=== PATIENT | female | born 1935 | race Caucasian/White ===

== ENCOUNTER 2016-11-10 09:53 | Outpatient (CLI) | payer MEDICARE, MEDICAID ==
[~2016-11-10 09:53] MED LIST: CLOP75TA2 PO; GLIM2TAB2 PO; METO25TA6 PO; SITA1TAB2 PO; VALS1TAB4 PO
== END 2016-11-10 23:59 | disposition home or self-care (01) ==
LOC: CT 09:53
DX: K42.9 Umbilical hernia without obstruction or gangrene (principal); N28.1 Cyst of kidney, acquired; M48.54XA Collapsed vertebra, not elsewhere classified, thoracic region, initial encounter for fracture; M51.37 Other intervertebral disc degeneration, lumbosacral region; M48.02 Spinal stenosis, cervical region; I65.23 Occlusion and stenosis of bilateral carotid arteries; M50.323 Other cervical disc degeneration at C6-C7 level; M25.78 Osteophyte, vertebrae; R22.1 Localized swelling, mass and lump, neck; D71 Functional disorders of polymorphonuclear neutrophils
CPT/HCPCS: 70490-TC; 72128-TC

== ENCOUNTER 2017-05-13 15:06 | Emergency (ER) | payer MEDICARE, MEDICAID ==
[~2017-05-13] VITALS: Ht 160 cm; Wt 95.7 kg
[~2017-05-13 15:06] MED LIST changes: +CLOP75TA15 PO; -CLOP75TA2 PO
--- NOTE | 2017-05-13 15:25 | NUR ---
PRESENTS TO ER C/O RIGHT LOWER EXTREMITY PAIN AND SWELLING. PER PATIENT WORSENING X 7 DAYS NOW. PATIENT IS A/OX 4. BREATHING EVEN AND UNLABORED. NO SOB. VITALS STABLE. SAFETY AND COMFORT MEASURES IN PLACE. AWAITING MD ORDERS.
--- NOTE | 2017-05-13 15:30 | NUR ---
NEW IV STARTED ON RAC, 20 G. BLOOD DRAWN AND SENT TO LAB.
[2017-05-13 15:40] LABS: BASOPHILS # (AUTO) 0.1 /CMM (0.0-0.2); BASOPHILS % (AUTO) 0.9 % (0.0-2.0); EOSINOPHILS % (AUTO) 1.4 % (0.0-6.0); HEMATOCRIT 31 % (33-45); HEMOGLOBIN 10.2 g/dL (11.5-14.8); LYMPHOCYTES # (AUTO) 2.3 /CMM (0.8-4.8); LYMPHOCYTES % (AUTO) 27.5 % (20.0-44.0); MEAN CORPUSCULAR HGB CONC 33 g/dl (31.0-36.0); MEAN CORPUSCULAR VOLUME 78 fL (82-100); MONOCYTES # (AUTO) 0.6 /CMM (0.1-1.30); MONOCYTES % (AUTO) 7.5 % (2.0-12.0); NEUTROPHILS # (AUTO) 5.3 /CMM (1.8-8.9); NEUTROPHILS % (AUTO) 62.7 % (43.0-81.0); PLATELET COUNT (AUTO) 247 /CMM (150-450); RDW COEFFICIENT OF VARIATION 16.2 (11.5-15.0); RED BLOOD CELL COUNT(AUTO) 3.94 MIL/uL (4.0-5.2); WHITE BLOOD COUNT (AUTO) 8.4 K/uL (4.3-11.0)
[2017-05-13 15:54] LABS: CARBON DIOXIDE 27 mmol/L (21-32); CHLORIDE 108 mmol/L (98-107); CREATININE 0.9 mg/dL (0.6-1.3); GLUCOSE 115 mg/dL (74-106); SODIUM SERUM 141 mmol/L (136-145); UREA NITROGEN, BLOOD 22 mg/dL (7-18)
[2017-05-13 15:58] LABS: INR 0.96 (0.87-1.13)
[2017-05-13 16:02] LABS: TROPONIN I < 0.017 ng/mL (0.00-0.056)
--- NOTE | 2017-05-13 16:05 | NUR ---
US TECH AT BEDSIDE.
[2017-05-13 16:06] LABS: B-TYPE NATRIURETIC PEPTIDE 317 PG/ML (0-125)
[2017-05-13 17:41] VITALS: BP 154/86
--- NOTE | 2017-05-13 17:46 | NUR ---
PATIENT WANTING TO LEAVE DESPITE NOT HAVING ARTERIAL DUPLEX DONE. MD EXPLAINED THEY WOULD HAVE TO LEAVE AMA. PATIENT AND FAMILY AGREE TO LEAVE AMA AND F/U WITH PRIMARY MD FOR TEST. MD AND PATIENT SIGNED AMA FORM. IV removed. Catheter intact and site benign. Pressure and 4x4 applied to site. No bleeding noted. Patient discharged to home in stable condition. Written and verbal after care instructions given. Patient verbalizes understanding of instruction.
== END 2017-05-13 17:40 | disposition left against medical advice (07) ==
LOC: ER 15:10
DX: R60.0 Localized edema (principal); D50.9 Iron deficiency anemia, unspecified; E11.9 Type 2 diabetes mellitus without complications; I10 Essential (primary) hypertension; I70.0 Atherosclerosis of aorta; Z88.0 Allergy status to penicillin
CPT/HCPCS: 36415; 71045-TC; 80048-TC; 83880; 84484-TC; 85025-TC; 85730-TC; 93970-TC; A4606; Z7610